=== PATIENT | male | born 1980 | race Caucasian/White ===

== ENCOUNTER 2017-06-29 20:24 | Inpatient (IN) | payer OTHER ==
[~2017-06-29] VITALS: Ht 175.3 cm; Wt 87.1 kg
--- NOTE | 2017-06-29 21:40 | NUR ---
PRE - ADMISSION NOTE : Patient is a 37-year-old male who presents to [facility] for medically supervised withdrawal from benzos and alcohol. He reports a history of heroin and stimulant use disorder, but remains in remission from these substances. Pt. is NKA, Full Code, on Reg. Diet , denies to have PCP, history of withdrawal-induced seizures, but reports a history of withdrawal-induced delirium and accidental intoxication induced overdoses. Patient reported the following symptoms of withdrawal: anxiety, restlessness, tremors, mild headache, difficulty concentrating, muscle spasms, dysphoria, and anhedonia. Pt. also complains of sore throat . TE=233/70 , HR=66, RR=16, unlabored and even, Temp=98.2, No SI/HI at this moment. Pt. denies history of visual and audio hallucinations. Pt. will be admitted to the Unit.
[2017-06-29] MEDS ORDERED: DICYCLOMINE HCL 20 MG TABLET PO PRN (22:45)
[2017-06-29] MEDS ORDERED: ONDANSETRON 4 MG/2 ML VIAL IM PRN (22:45)
[2017-06-29] MEDS ORDERED: MIRALAX 17 GM POWD.PACK PO PRN (22:45)
[2017-06-29] MEDS ORDERED: PRAZOSIN HCL 1 MG CAPSULE PO PRN (22:45)
[2017-06-29] MEDS ORDERED: ACETAMINOPHEN 325 MG TABLET PO PRN (22:45)
[2017-06-29] MEDS ORDERED: THIAMINE HCL 200 MG/2 ML VIAL IM ONE (22:45)
[2017-06-29] MEDS ORDERED: LOPERAMIDE HCL 2 MG CAPSULE PO PRN ×2 (22:45)
[2017-06-29] MEDS ORDERED: MAG HYDROX/AL HYDROX/SIMETH 30 ML LIQUID UDC PO PRN (22:45)
[2017-06-29] MEDS ORDERED: ONDANSETRON ODT 4 MG TAB.RAPDIS SL PRN (22:45)
[2017-06-29] MEDS ORDERED: LORAZEPAM 2 MG/1 ML VIAL IM PRN (22:45)
[2017-06-29] MEDS ORDERED: DIAZEPAM 5 MG TABLET PO PRN (22:45)
[2017-06-29] MEDS ORDERED: DIAZEPAM 10 MG TABLET PO PRN ×2 (22:45)
[2017-06-29] MEDS ORDERED: BACL10TA PO (22:47)
--- NOTE | 2017-06-29 23:00 | NUR ---
ADMISSION NOTE : Patient is a 37-year-old male admitted to [facility] for medically supervised withdrawal from benzos and alcohol. He reports a history of heroin and stimulant use disorder, but remains in remission from these substances. Pt. is NKA, Full Code, on Reg. Diet , denies to have PCP, denies history of withdrawal-induced seizures, but reports a history of withdrawal-induced delirium and accidental intoxication induced overdoses. He states the cause of his ongoing and frequent use have been due to severe anxiety, panic disorder, mood disorder and insomnia . Upon admission the patient reported the following symptoms of withdrawal: anxiety, restlessness, tremors, mild headache, difficulty concentrating, muscle spasms, dysphoria, and anhedonia. Pt. also complains of sore throat . SR=738/70 , HR=66, RR=16, unlabored and even, Temp=98.2, denies pain. Pt. will be started on 5 day Valium taper on 06/30/2017. No SI/HI at this moment. Pt. denies history of visual and audio hallucinations. Pt. is oriented to his room and unit, education provided on Hep.C, substance abuse, falls and seizures. Skin is warm and intact. CIWA=8 . Safety measures in place : bed on lowest position with side rails x2 up for safety, call light within reach. Will continue to monitor closely and offer help. Substance Abuse History is as follow : XANAX 8MG QD PO LAST 3 MONTHS, LAST USE ON 06/29/2017 , USES SINCE 2009. KLONOPIN 8MG QD PO LAST 3 MONTHS, LAST USE ON 06/29/2017 , USES SINCE 2009. ATIVAN 4MG QD PO LAST 3 MONTHS, LAST USE ON 06/29/2017 , USES SINCE 2009. ETOH/VODKA 240 ML QD PO LAST 3 MONTHS, LAST USE ON 06/29/2017 , USES SINCE 1994 CODEINE 90MG QD PO SINCE 05/2017, LAST USE ON 06/29/2017 , USES SINCE 03/2017. OCCASIONALLY NORCO , PERCOCET, DILAUDID. PAST MEDICAL HISTORY : 1. Mood disorder, unspecified 2. Anxiety disorder, unspecified 3. Schizoaffective disorder 4. Panic disorder Surgical history: Other (rectal foreign body surgical removal) [place] HISTORY : X10 DETOX. X10 REHAB. LONGEST SOBER PERIOD : 5 YEARS, 03/2011-08/2015 FAMILY HISTORY : FATHER : HTN, DM. MOTHER AND BROTHER ARE IN GOOD HEALTH CONDITION.
[2017-06-29 23:15] LABS: BASOPHILS # (AUTO) 0.1 K/uL (0.0-8.0); BASOPHILS % (AUTO) 0.6 % (0.0-2.0); EOSINOPHILS # (AUTO) 0.2 K/uL (0.0-0.7); EOSINOPHILS % (AUTO) 1.9 % (0.0-7.0); HEMOGLOBIN 15.7 G/DL (14.0-18.0); LYMPHOCYTES % (AUTO) 32.7 % (20.5-51.5); MEAN CORPUSCULAR HEMOGLOBIN 30.7 UUG (27.0-31.0); MEAN CORPUSCULAR HGB CONC 34 g/dL (32.0-37.0); MONOCYTES # (AUTO) 0.8 K/UL (0.1-1.30); MONOCYTES % (AUTO) 8.2 % (0.0-11.0); NEUTROPHILS # (AUTO) 5.2 K/UL (1.8-8.9); NEUTROPHILS % (AUTO) 56.6 % (38.5-71.5); PLATELET COUNT (AUTO) 229 K/UL (150-450); RED BLOOD CELL COUNT(AUTO) 5.11 MIL/UL (4.7-6.1); WHITE BLOOD COUNT (AUTO) 9.3 K/UL (4.0-11.2)
[2017-06-29] MEDS ORDERED: DIAZEPAM 10 MG TABLET PO SCH (23:30)
[2017-06-29] MEDS ORDERED: THIAMINE HCL 200 MG/2 ML VIAL ONE (23:33)
[2017-06-29] MEDS ORDERED: DIAZEPAM 10 MG TABLET ONE (23:34)
[2017-06-29 23:35] LABS: ETHANOL < 3 MG/DL (0-0)
[2017-06-29 23:46] LABS: ALANINE AMINOTRANSFERASE 40 U/L (16-63); ALKALINE PHOSPHATASE 55 U/L (50-136); ASPARTATE AMINOTRANSFERASE 24 U/L (15-37); BILIRUBIN,TOTAL 0.4 mg/dL (0.2-1.0); CARBON DIOXIDE 32 mmol/L (21-32); CHLORIDE 101 mmol/L (98-107); CREATININE 1.4 mg/dL (0.6-1.3); GLUCOSE 72 mg/dL (74-106); MAGNESIUM 2.1 mg/dL (1.8-2.4); POTASSIUM 3.8 mmol/L (3.5-5.1); TOTAL PROTEIN, SERUM 7.7 g/dL (6.4-8.2); UREA NITROGEN, BLOOD 17 mg/dL (7-18)
[2017-06-30] VITALS: BP 96/50
[2017-06-30] LABS: *AMPHETAMINE, URINE NEGATIVE (NEGATIVE); *BARBITURATE, URINE NEGATIVE (NEGATIVE); *CANNABINOID, URINE NEGATIVE (NEGATIVE); *COCCAINE, URINE NEGATIVE (NEGATIVE); *OPIATE, URINE POSITIVE (NEGATIVE); *PHENCYCLIDINE SCREEN,URINE NEGATIVE (NEGATIVE)
[2017-06-30 00:48] LABS: THYROID STIMULATING HORMONE 3.971 mIU/mL (0.358-3.740)
--- NOTE | 2017-06-30 06:51 | NUR ---
END OF SHIFT NOTE : Patient is a 37-year-old male who presents to [facility] for medically supervised withdrawal from benzos and alcohol. He reports a history of heroin and stimulant use disorder, but remains in remission from these substances. Pt. is NKA, Full Code, on Reg. Diet , denies to have PCP, history of withdrawal-induced seizures, but reports a history of withdrawal-induced delirium and accidental intoxication induced overdoses. Pt remains compliant with the treatment plan.No PRN were given during my shift. V/S remain WNL. RR=16, even and unlabored, lungs clear upon auscultation, abdomen soft and non- distended. Pt denies nausea, vomiting and diarrhea. CIWA taken when pt. was alert during the night, LAST CIWA= 5 at 0400 , INTAKE= 500 ml, voided x 1, slept 6 hours. Safety measures in place : bed on lowest position with side rails x2 up for safety, call light within reach. Will continue to monitor closely and offer help.
--- NOTE | 2017-06-30 07:40 | NUR ---
START OF SHIFT: PT IS LAYING IN BED SLEEPING WITH RESPIRATIONS EVEN AND UNLABORED.HE IS EASILY AROUSABLE AND STATES HE NEEDS TO SLEEP. WILL CONTINUE TO MONITOR.
[2017-06-30 08:01] VITALS: BP 100/60
[2017-06-30] MEDS: THIAMINE HCL 100 MG TABLET PO SCH (09:00)
[2017-06-30] MEDS: MULTIVITAMINS,THERAPEUTIC TABLET PO SCH (09:00)
[2017-06-30] MEDS: FOLIC ACID 1 MG TABLET PO SCH (09:00)
[2017-06-30] MEDS ORDERED: DIAZEPAM 10 MG TABLET PO SCH (09:00)
[2017-06-30] MEDS ORDERED: TUBERCULIN,PURIF.PROT.DERIV. 5 TU/0.1 ML TEST ID ONE ×2 (09:00→13:00)
[2017-06-30] MEDS: OXCARBAZEPINE 150 MG TABLET PO SCH ×2 (09:00→21:50)
--- NOTE | 2017-06-30 10:00 | NUR ---
HELD AM MEDS.YAKOV DEFERRED. WILL CONTINUE TO MONITOR AND OFFER SUPPORT.
[2017-06-30] MEDS ORDERED: OXCARBAZEPINE 150 MG TABLET PO ONE (11:30)
[2017-06-30] MEDS: DIAZEPAM 10 MG TABLET PO SCH ×4 (11:31→21:50)
--- NOTE | 2017-06-30 11:55 | NUR ---
PT IS A/O X 4. HE PRESENTS WITH ANXIOUS MOOD AND CONGRUENT AFFECT. HE C/O RESTLESSNESS,ANXIETY AND IRRITABILITY. CIWA 10. VALIUM TAPER IN PROGRESS. HE STATES HE DOES NOT REMEMBER SORTING OUT HIS CLOTHES ON ADMISSION AND IS QUESTIONING WHERE THEY ARE. RV SERVICER TO ANSWER PT'S QUESTIONS REGARDING BELONGINGS. PT IS C/O LARYNGITIS AND COUGH. MD MADE AWARE AND HE STATES HE WILL ORDER MEDS TO MANAGE. WILL CONTINUE TO MONITOR AND OFFER SUPPORT.
[2017-06-30 12:00] VITALS: BP 117/60
[2017-06-30] MEDS ORDERED: GUAIFENESIN SUGAR FREE 100 MG/5 ML UDC PO PRN (12:30)
[2017-06-30] MEDS ORDERED: DIME25TA2 PO (15:26)
[2017-06-30] MEDS ORDERED: MELA5TAB PO (15:26)
[2017-06-30] MEDS ORDERED: POLY119P2 PO ×2 (15:29→15:33)
[2017-06-30] MEDS ORDERED: zicam (15:29)
[2017-06-30] MEDS ORDERED: VILA10TA PO (15:40)
[2017-06-30] MEDS ORDERED: IBUP200C92 PO (15:40)
[2017-06-30] MEDS ORDERED: DIPH25TA62 PO (15:41)
[2017-06-30 16:00] VITALS: BP 107/64
--- NOTE | 2017-06-30 18:31 | NUR ---
END OF SHIFT: PT STARTED ON VALIUM TAPER TODAY. HE SLEPT MOST OF AM AND STARTED IN AFTERNOON. HE PRESENTS WITH BIZARRE AFFECT. HE C/O FEELING IMPENDING DOOM. OFFERED SUPPORT. ENCOURAGED INCREASED FLUIDS TO ASSIST IN FACILITATING DETOX PROCESS. WILL PASS SHIFT REPORT TO ONCOMING NIGHT NURSE.
--- NOTE | 2017-06-30 19:15 | NUR ---
START OF SHIFT NOTE : Patient is a 37-year-old male admitted to [facility] for medically supervised withdrawal from benzos and alcohol. Pt. is NKA, Full Code, on Reg. Diet. Pt. started on 5 day Valium taper on 06/30/2017. Pt. complains of sore throat , increased level of anxiety, anhedonia, denies pain. No SI/HI at this moment ,CIWA=4 . Safety measures in place : bed on lowest position with side rails x2 up for safety, call light within reach. Will continue to monitor closely and offer help
[2017-06-30 20:00] VITALS: BP 92/50
--- NOTE | 2017-06-30 21:00 | NUR ---
PRN CEPACOL, BENADRYL, CATAPRESS, LIORESAL Pt. complains of sleeplessness, flashes, soar throat, mild muscle spasm. PRN CEPACOL, BENADRYL, CATAPRESS, LIORESAL Given as ordered . Safety measures in place : bed on lowest position with side rails x2 up for safety, call light within reach. Will continue to monitor closely and offer help.
[2017-06-30] MEDS: BENZOCAINE/MENTH/CETYLPYRD LOZENGE MM PRN (21:50)
[2017-06-30] MEDS: BACLOFEN 20 MG TABLET PO PRN (21:50)
[2017-06-30] MEDS: diphenhydrAMINE 50 MG CAPSULE PO PRN (21:50)
[2017-06-30] MEDS: CLONIDINE HCL 0.1 MG TABLET PO PRN (21:51)
--- NOTE | 2017-06-30 22:00 | NUR ---
RE-ASSESSMENT CEPACOL, BENADRYL, CATAPRESS, LIORESAL Pt. is sleeping , RR=16, unlabored and even. Safety measures in place : bed on lowest position with side rails x2 up for safety, call light within reach. Will continue to monitor closely and offer help.
--- NOTE | 2017-07-01 06:54 | NUR ---
END OF SHIFT NOTE : Patient is a 37-year-old male admitted to [facility] for medically supervised withdrawal from benzos and alcohol. Pt. is NKA, Full Code, on Reg. Diet. Pt. started on 5 day Valium taper on 06/30/2017. Pt remains compliant with the treatment plan. PRN CEPACOL, BENADRYL, CATAPRESS, LIORESAL given during my shift. V/S remain WNL. RR=16, even and unlabored, lungs clear upon auscultation, abdomen soft and non- distended. Pt denies nausea, vomiting and diarrhea. CIWA taken when pt. was alert during the night, LAST CIWA=4 at 0400 , NPAKKR=071 ml, voided x 1, slept 6 hours. Safety measures in place : bed on lowest position with side rails x2 up for safety, call light within reach. Will continue to monitor closely and offer help. Addendum: 07/01/17 at 0754 by YORDAN GUAJARDO RN Pt. placed side-rales down (his wish).
--- NOTE | 2017-07-01 07:45 | NUR ---
START OF SHIFT Rcvd endorsement from ongoing nurse, client is in bed, he is a/o x 4, he presents with anxious mood and flat affect and clammy skin. Client reports sore throat and said I have not been able to speak for like a week due to pain, no redness , no swollen lymph nodes, no difficulty swallowing. He reports chills, body aches, abdominal cramps, decreased appetite, and fine tremors. Encouraged client to attend group therapy for skills to maintain sober. Encouraged client to increase PO fluid as tolerated to facilitate detox. Client is a 37 y/o male, admitted to [facility] for withdrawal from sedative-hypnotics and alcohol. Client is on 5 day Valium taper (day 2), tolerating well . Last CIWA 4 @ 0400. PRN Cepacol lozenge MM for sore throat, Benadryl 50mg for inability to sleep, Clonidine 0.1mg Po for irritability, anxiety, Baclofen 20mg for muscle spasm, noted effective. Client slept 7 hrs. He denies any hx of withdrawal-induced seizures, but he reports a hx of withdrawal induced delirium. Client is on He reports of NKA, he is full code, Regular diet. Client refused side rails x 2 up/padded, explained that they are for seizure precautions, but he still refused, stating I do not need it, never had a seizure before. Call light within reach.
[2017-07-01 08:00] VITALS: BP 111/61
[2017-07-01 08:06] LABS: HEPATITIS B SURFACE AG Negative (Negative)
[2017-07-01] MEDS: MULTIVITAMINS,THERAPEUTIC TABLET PO SCH (09:59)
[2017-07-01] MEDS: FOLIC ACID 1 MG TABLET PO SCH (09:59)
[2017-07-01] MEDS: DIAZEPAM 10 MG TABLET PO SCH ×3 (09:59→21:14)
[2017-07-01] MEDS: THIAMINE HCL 100 MG TABLET PO SCH (09:59)
[2017-07-01] MEDS: OXCARBAZEPINE 150 MG TABLET PO SCH (10:30)
[2017-07-01 12:52] VITALS: BP 102/52
[2017-07-01] MEDS ORDERED: OXCARBAZEPINE 150 MG TABLET PO ONE (13:00)
[2017-07-01] MEDS ORDERED: AZITHROMYCIN 250 MG TABLET PO ONE (13:00)
[2017-07-01 16:55] VITALS: BP 104/56
[2017-07-01] MEDS: BACLOFEN 20 MG TABLET PO PRN ×2 (17:43→21:14)
--- NOTE | 2017-07-01 17:43 | NUR ---
PRN Bentyl 20mg Po, Baclofen 20mg PO administered for abdominals spasms and muscle spasm on lower extremities respectively. call light within reach. Will continue to monitor.
--- NOTE | 2017-07-01 18:43 | NUR ---
Reassessment PRN Bentyl 20mg PO, Baclofen 20mg PO, client reports feeling better. call light within reach. Will continue to monitor.
--- NOTE | 2017-07-01 19:15 | NUR ---
[address] [place] [address] START OF SHIFT NOTE : Patient is a 37-year-old male admitted to [facility] for medically supervised withdrawal from benzos and alcohol. Pt. is NKA, Full Code, on Reg. Diet. Pt. started on 5 day Valium taper on 06/30/2017. Pt. complains of sore throat , increased level of anxiety. No SI/HI at this moment ,CIWA=7 . Safety measures in place : bed on lowest position with side rails x2 up for safety, call light within reach. Will continue to monitor closely and offer help.
--- NOTE | 2017-07-01 19:28 | NUR ---
END OF SHIFT Client is a 37 y/o male,a/o x 4, he was admitted to [facility] for withdrawal from sedative-hypnotics and alcohol. Client is on 5 day Valium taper (day 2), tolerating well . Last CIWA 8 @ 1600. Client continue to presents with depressed mood, withdrawal, flat affect, chills, fine tremors, restless legs noted. Client is on antibiotic therapy, Azithromycin 500 mg PO x1 now, followed by 250 mg PO daily x 4 days, tolerating well. PRN Bentyl 20mg Po, Baclofen 20mg PO administered for abdominals spasms and muscle spasm on lower extremities respectively, noted effective. Client was not compliant with group therapy due to withdrawal symptoms. Adequate PO fluid intake 1592mL, void x 4, stool x 1. He denies any hx of withdrawal-induced seizures, but he reports a hx of withdrawal induced delirium. Client is on He reports of NKA, he is full code, Regular diet. Client refused side rails x 2 up/padded, explained that they are for seizure precautions, but he still refused, stating I do not need it, never had a seizure before. Call light within reach. Endorsed to incoming nurse.
[2017-07-01 20:00] VITALS: BP 109/55
[2017-07-01] MEDS: CLONIDINE HCL 0.1 MG TABLET PO PRN (21:14)
[2017-07-01] MEDS: diphenhydrAMINE 50 MG CAPSULE PO PRN (21:14)
[2017-07-01] MEDS: OXCARBAZEPINE 300 MG TABLET PO SCH (21:14)
[2017-07-01] MEDS: BENZOCAINE/MENTH/CETYLPYRD LOZENGE MM PRN (21:14)
--- NOTE | 2017-07-02 06:35 | NUR ---
END OF SHIFT NOTE : Patient is a 37-year-old male admitted to [facility] for medically supervised withdrawal from benzos and alcohol. Pt. is NKA, Full Code, on Reg. Diet. Pt. started on 5 day Valium taper on 06/30/2017 Pt remains compliant with the treatment plan. PRN CEPACOL, BENADRYL, CATAPRESS, LIORESAL were given during my shift. V/S remain WNL. RR=16, even and unlabored, lungs clear upon auscultation, abdomen soft and non- distended. Pt denies nausea, vomiting and diarrhea. CIWA taken when pt. was alert during the night, LAST CIWA= 5 at 0400 , INTAKE= 1203 ml, voided x3 , slept 9 hours. Safety measures in place : bed on lowest position with side rails x2 up for safety, call light within reach. Will continue to monitor closely and offer help.
--- NOTE | 2017-07-02 07:30 | NUR ---
START OF SHIFT NOTE: RECEIVED PT FROM DEPUTY PROBATION OFFICER NURSE, PT IS IN STABLE CONDITION AT THIS TIME. PT IS ADMITTED TO [facility] FOR BENZO/ETOH WITHDRAWAL/DEPENDENCE. PT'S LAST CIWA 5 AND SLEPT FOR 9 HOURS. WILL CONTINUE TO MONITOR PT FOR ANY CHANGES AND MONITOR PT FOR ANY A/R TO TAPER MEDICATIONS
[2017-07-02] MEDS: THIAMINE HCL 100 MG TABLET PO SCH (08:54)
[2017-07-02] MEDS: OXCARBAZEPINE 300 MG TABLET PO SCH ×2 (08:54→21:19)
[2017-07-02] MEDS: AZITHROMYCIN 250 MG TABLET PO SCH (08:54)
[2017-07-02] MEDS: MULTIVITAMINS,THERAPEUTIC TABLET PO SCH (08:54)
[2017-07-02] MEDS: DIAZEPAM 5 MG TABLET PO SCH ×4 (08:54→21:19)
[2017-07-02] MEDS: FOLIC ACID 1 MG TABLET PO SCH (08:54)
[2017-07-02 10:28] VITALS: BP 104/55
--- NOTE | 2017-07-02 12:10 | NUR ---
relayed lab results regarding moderate growth in throat culture. stated he is already on ATB therapy.
[2017-07-02 13:11] VITALS: BP 120/60
--- NOTE | 2017-07-02 14:36 | NUR ---
Therapist prompted client about group times. Client stated he does not want to go to groups because he doesn't like them. Therapist discussed benefits of group therapy with client. Client stated he will try to attend tomorrow.
[2017-07-02 18:39] VITALS: BP 112/71
--- NOTE | 2017-07-02 19:09 | NUR ---
END OF SHIFT NOTE: PT IS IN STABLE CONDITION NO S/S OF PAIN OR DISCOMFORT. PTS LAST CIWA 5, PT IS CONSTANTLY VERBALIZING ANXIETY. BUT IS IN A CALM, FLAT AFFECT. PT IS ADMITTED TO [facility] FOR BENZO/ETOH WITHDRAWAL/DEPENDENCE. PT TOLERATED TAPER MEDICATIONS WELL NO A/R NOTED. WILL ENDORSE PT TO COMBER TENDER
--- NOTE | 2017-07-02 19:15 | NUR ---
START OF SHIFT NOTE : Patient is a 37-year-old male admitted to [facility] for medically supervised withdrawal from benzos and alcohol. Pt. is NKA, Full Code, on Reg. Diet. Pt. started on 5 day Valium taper on 06/30/2017, tolerates well. Pt remains compliant with the treatment plan, complains of increased level of anxiety , want sleeping pill after 21:00. Last CIWA=5 at 19:15. Safety measures in place : bed on lowest position with side rails x2 up for safety, call light within reach. Will continue to monitor closely and offer help.
[2017-07-02 20:00] VITALS: BP 105/68
[2017-07-02] MEDS: BENZOCAINE/MENTH/CETYLPYRD LOZENGE MM PRN (21:19)
[2017-07-02] MEDS: BACLOFEN 20 MG TABLET PO PRN (21:19)
[2017-07-02] MEDS: diphenhydrAMINE 50 MG CAPSULE PO PRN (21:19)
[2017-07-02] MEDS: CLONIDINE HCL 0.1 MG TABLET PO PRN (21:19)
--- NOTE | 2017-07-03 06:41 | NUR ---
END OF SHIFT NOTE : Patient is a 37-year-old male admitted to [facility] for medically supervised withdrawal from benzos and alcohol. Pt. is NKA, Full Code, on Reg. Diet. Pt. started on 5 day Valium taper on 06/30/2017, tolerates well. Pt remains compliant with the treatment plan. PRN CEPACOL, BENADRYL, CATAPRESS, LIORESAL were given during my shift. RR=16, even and unlabored, lungs clear upon auscultation, abdomen soft and non- distended. Pt denies nausea, vomiting and diarrhea. CIWA taken when pt. was alert during the night, LAST CIWA=5 at 0400 , BUGYUC=0837 ml, voided x3 , slept 8 hours. Safety measures in place : bed on lowest position with side rails x2 up for safety, call light within reach. Will continue to monitor closely and offer help.
--- NOTE | 2017-07-03 07:35 | NUR ---
Start of shift note; Received report from night nurse. Patient is a 37 year old male admitted on 06/29/17 for ETOH/Benzo dependence. Patient was placed on Valium taper, no adverse reactions noted. Patient reported history of anxiety, depression, mood disorder, panic disorder , schizoaffective disorder. Patient's last CIWA is 5. Patient received PRNs Cepacol, Benadryl , clonidine, baclofen all noted to be effective. Patient is on fall and seizure precaution. All safety measures secured. Will continue to monitor patient.
[2017-07-03 08:00] VITALS: BP 103/63
[2017-07-03] MEDS: FOLIC ACID 1 MG TABLET PO SCH (08:48)
[2017-07-03] MEDS: MULTIVITAMINS,THERAPEUTIC TABLET PO SCH (08:48)
[2017-07-03] MEDS: DIAZEPAM 5 MG TABLET PO SCH ×3 (08:48→21:09)
[2017-07-03] MEDS: OXCARBAZEPINE 300 MG TABLET PO SCH ×2 (08:48→21:09)
[2017-07-03] MEDS: AZITHROMYCIN 250 MG TABLET PO SCH (08:48)
[2017-07-03] MEDS: THIAMINE HCL 100 MG TABLET PO SCH (08:48)
--- NOTE | 2017-07-03 11:18 | NUR ---
Psychiatrist new Order; gave telephone order of Seroquel 100mg PO HS. does not have access to [employer] at this time. Order entered on [employer], medication scheduled for 2099.
[2017-07-03 12:00] VITALS: BP 131/86
[2017-07-03 16:00] VITALS: BP 107/62
--- NOTE | 2017-07-03 18:16 | NUR ---
End of shift note; Patient is AOX4. Patient is a 37 year old male admitted on 06/29/17 for ETOH/Benzo dependence. Patient was placed on Valium taper, no adverse reactions noted. Patient reported history of anxiety, depression, mood disorder, panic disorder , schizoaffective disorder. Patient's last CIWA is 2 at 1600. Patient remained compliant with treatment plan and medication regime. Medications were effective in reducing withdrawal symptoms. All safety measures secured. Met all needs.
[2017-07-03 20:00] VITALS: BP 112/62
--- NOTE | 2017-07-03 20:00 | NUR ---
START OF SHIFT NOTE RECEIVED REPORT FROM DAY SHIFT NURSE. PATIENT IS A 37 YEAR OLD MALE ADMITTED FOR ETOH/BENZO/CODEINE DEPENDENCE. CONTINUE ON VALIUM TAPER. PATIENT REPORTS PMH OF ANXIETY, DEPRESSION, MOOD D/O, PANIC D/O, SCHOAFFECTIVE D/O AND RECTAL SURGERY. PATIENT ALSO REPORTS HISTORY OF WITHDRAWAL INDUCED DELIRIUM.SKIN INTACT. PATIENT DID NOT REQUIRE ANY PRN MEDICATION. LAST CIWA 2. RECEIVED PATIENT IN HIS ROOM , RESTING. PATIENT ALERT AND ORIENTED X 4. RESPIRATION EVEN AND UNLABORED. PATIENT REPORTS ANXIETY. NO N/V. DENIES ANY PAIN AT THIS TIME. PATIENT ENCOURAGED TO ATTEND GROUPS. ON FALL/SEIZURE PRECAUTION. SAFETY MEASURES IN PLACE. CALL LIGHT IN REACH. WILL CONTINUE TO MONITOR.
[2017-07-03] MEDS: PRAZOSIN HCL 1 MG CAPSULE PO SCH (21:00)
[2017-07-03] MEDS ORDERED: QUETIAPINE FUMARATE 100 MG TABLET PO SCH (21:00)
--- NOTE | 2017-07-03 21:00 | NUR ---
MINIPRESS HELD MINIPRESS WAS HELD DUE TO PATIENT'S BLOOD PRESSURE 112/62 AND HR 58. MINIPRESS WITH PARAMETER TO HOLD IF BP-100/70 AND HR 70. WILL CONTINUE TO MONITOR
--- NOTE | 2017-07-03 21:05 | NUR ---
ORDERS PATIENT REFUSED SEROQUEL, PER PATIENT SEROQUEL MAKES HIM MORE ANXIOUS. RADHA PLUMMER WAS NOTIFIED AND MADE NEW ORDER OF BENADRYL FOR SLEEP. WILL CONTINUE TO MONITOR
--- NOTE | 2017-07-03 21:09 | NUR ---
PRN BENADRYL ADMINISTRATION PATIENT REQUESTS FOR SLEEP AID. PRN BENADRYL GIVEN. WILL MONITOR FOR EFFECTIVENESS
[2017-07-03] MEDS ORDERED: diphenhydrAMINE 50 MG CAPSULE PO PRN (21:15)
[2017-07-03] MEDS ORDERED: diphenhydrAMINE 50 MG CAPSULE ONE (21:22)
--- NOTE | 2017-07-03 23:00 | NUR ---
KIMBERLEE YOUNG RE-ASSESSMENT PATIENT ASLEEP AT THIS TIME. RESPIRATION EVEN AND UNLABORED. SAFETY MEASURES IN PLACE. CALL LIGHT IN REACH. WILL CONTINUE TO MONITOR.
--- NOTE | 2017-07-04 | NUR ---
CIWA DEFERRED PATIENT SLEEPING. REFUSED TO WOKEN UP FOR VS. RESPIRATION EVEN AND UNLABORED. SAFETY MEASURES IN PLACE. CALL LIGHT IN REACH. WILL CONTINUE TO MONITOR
--- NOTE | 2017-07-04 04:00 | NUR ---
CIWA DEFERRED PATIENT SLEEPING. REFUSED TO WOKEN UP FOR VS. RESPIRATION EVEN AND UNLABORED. SAFETY MEASURES IN PLACE. CALL LIGHT IN REACH. WILL CONTINUE TO MONITOR
--- NOTE | 2017-07-04 07:18 | NUR ---
END OF SHIFT PATIENT IN ROOM MOST OF THE SHIFT. COMPLIANT WITH MEDICATIONS. PATIENT SLEPT 6 HOURS. FLUID INTAKE 2,210 ML. VOIDED X 3 AND BM X 2. MINIPRESS HELD FOR PARAMETER IF BP LESS THAN 100/70 AND HR 70. PATIENT'S BP AT 1999 WAS 112/62 HR 58. SEROQUEL REFUSED, EXPLAINED RISKS BENEFITS. DR. GARCIA AWARE AND MADE NEW ORDER FOR BENADRYL FOR SLEEP. LAST CIWA 4. WILL CONTINUE TO MONITOR.
[2017-07-04 08:00] VITALS: BP 90/60
--- NOTE | 2017-07-04 08:00 | NUR ---
START OF SHIFT: RECEIVED PT A/O X 4. HE PRESENTS WITH GUARDED AFFECT AND ANXIOUS MOOD. HE STATES HE SLEPT OK. PT STATES HE DOES NOT FEEL VERY GOOD BOT WONT GO INTO DETAILS ABOUT S/S OF W/D. CIWA 4 VALIUM TAPER IN PROGRESS TO MANAGE SYMPTOMS. ENCOURAGED GROUP ATTENDANCE. WILL CONTINUE TO MONITOR AND OFFER SUPPORT.
[2017-07-04] MEDS: MULTIVITAMINS,THERAPEUTIC TABLET PO SCH (08:45)
[2017-07-04] MEDS: AZITHROMYCIN 250 MG TABLET PO SCH (08:45)
[2017-07-04] MEDS: DIAZEPAM 5 MG TABLET PO SCH ×2 (08:45→20:05)
[2017-07-04] MEDS: OXCARBAZEPINE 300 MG TABLET PO SCH ×2 (08:45→20:05)
[2017-07-04] MEDS: FOLIC ACID 1 MG TABLET PO SCH (08:46)
[2017-07-04] MEDS: THIAMINE HCL 100 MG TABLET PO SCH (08:46)
[2017-07-04 12:00] VITALS: BP 129/62
[2017-07-04] MEDS ORDERED: DIAZEPAM 5 MG TABLET PO ONE (15:00)
[2017-07-04 16:00] VITALS: BP 99/60
--- NOTE | 2017-07-04 18:40 | NUR ---
END OF SHIFT; PT CONTINUES ON VALIUM TAPER.. LAST CIWA 2. HE CONTINUES TO PRESENT WITH BLUNTED AFFECT AND ISOLATES IN HIS ROOM. HE DID NOT ATTEND GROUPS TODAY. DR ORDERED EXTRA DOSE OF VALIUM PT C/O SEVERE ANXIETY AND S/S OF W/D. ENCOURAGED HIM TO TALK WITH THERAPIST TO EXPRESS FEELINGS. WILL PASS SHIFT REPORT TO ONCOMING NIGHT NURSE.
[2017-07-04 20:00] VITALS: BP 112/71
--- NOTE | 2017-07-04 20:00 | NUR ---
Start of Shift Note: Report received from day shift nurse. Pt is a 37M admitted on 06/29/17 for medically-supervised withdrawal from benzodiazepines and ETOH. Pt reports using Xanax 8mg, Klonopin 8mg, Ativan 4mg, and drinking 240mL vodka daily for three months. Pt is on Valium taper ending tonight. Pt received with last CIWA=2, and one-time dose of Valium given during day shift. Pt is a full code. Pt is on a regular diet. Pt reports NKDA/NKFA. PMHx: anxiety, depression, mood disorder, panic disorder, schizoaffective disorder. Pt received in room, is A&Ox4, and reports anxiety; pt noted to be guarded with restricted affect. Bed is in low position and locked, side rails up x2, call light is within reach. Will continue to monitor.
[2017-07-04] MEDS: diphenhydrAMINE 50 MG CAPSULE PO PRN (20:05)
--- NOTE | 2017-07-04 20:05 | NUR ---
PRN Benadryl: Patient complains of inability to sleep. Administered PRN Benadryl as ordered. Will reassess at end of shift.
[2017-07-04] MEDS: PRAZOSIN HCL 1 MG CAPSULE PO SCH (20:06)
[2017-07-04] MEDS ORDERED: QUETIAPINE FUMARATE 100 MG TABLET PO PRN (21:00)
--- NOTE | 2017-07-04 21:00 | NUR ---
Prazosin Non-Admin: Patient refuses 21:00 scheduled Prazosin, stating "I don't like to take new medications. It doesn't work out well for me." Patient educated on risks and benefits but still refused. Will continue to monitor.
[2017-07-05] VITALS: BP 101/54
--- NOTE | 2017-07-05 | NUR ---
CIWA Deferred: Ordered 00:00 CIWA assessment is deferred for sleep. VSS. All safety precautions are in place. Will continue to monitor. Addendum: 07/05/17 at 0130 by REJI CASTILLO RN Amended: Links added.
[2017-07-05 04:00] VITALS: BP 94/50
--- NOTE | 2017-07-05 04:00 | NUR ---
CIWA Deferred: CIWA is deferred for sleep. VSS. All safety precautions are in place. Will continue to monitor. Addendum: 07/05/17 at 0426 by REJI CASTILLO RN Amended: Links added.
[2017-07-05] MEDS: IBUPROFEN 600 MG TABLET PO PRN ×3 (05:20→20:24)
--- NOTE | 2017-07-05 05:20 | NUR ---
PRN Motrin: Patient complains of headache. Reports pain 7/10. Administered PRN Motrin as ordered. Will continue to monitor.
--- NOTE | 2017-07-05 06:20 | NUR ---
PRN Motrin Reassessment: Patient denies pain at this time. PRN Motrin effective. Will continue to monitor.
--- NOTE | 2017-07-05 07:08 | NUR ---
End of Shift Note: Pt is a 37 y/o male admitted to [facility] on 06/29/17 for medically-supervised withdrawal from benzodiazepines and ETOH. Pt reported a PMHx of anxiety, depression, mood disorder, panic disorder, and schizoaffective disorder. Pt is a full code, is on a regular diet, and reports NKDA/NKFA. Pt reported using Xanax 8mg, Klonopin 8mg, Ativan 4mg, and drinking 240mL vodka daily for three months. Pt is on Valium taper ending this morning. Scheduled medication regime effectively managed s/s of withdrawal, in addition to PRN Motrin. Pt refused scheduled Prozosin this shift. Last CIWA=4 at 20:00. V/S stable throughout shift. Total fluid intake this shift: 855 ml; output: urine x 2 and BM x 0. PRN Benadryl was given for insomnia, which was effective and slept 7 hours this shift. Pt is currently in bed, all needs have been attended and met. Pt endorsed to day shift nurse.
--- NOTE | 2017-07-05 07:30 | NUR ---
START OF SHIFT Pt 37 y/o male admitted for benzo/ etoh/ codeine dependence. Pt received in room on bed with eyes closed resting, but easily arousable to name. Pt alert and oriented to name, place, and time. Perrla. Skin warm and dry to touch. Respiration even and unlabored. It was reported that pt slept for 7 hours last night. Bed on lowest position with side rails x2 up for safety. Call light within reach. No distress noted at this time.
[2017-07-05 08:00] VITALS: BP_SYST 53
[2017-07-05] MEDS: FOLIC ACID 1 MG TABLET PO SCH (08:39)
[2017-07-05] MEDS: THIAMINE HCL 100 MG TABLET PO SCH (08:39)
[2017-07-05] MEDS: OXCARBAZEPINE 300 MG TABLET PO SCH ×2 (08:39→20:24)
[2017-07-05] MEDS: AZITHROMYCIN 250 MG TABLET PO SCH (08:39)
[2017-07-05] MEDS: MULTIVITAMINS,THERAPEUTIC TABLET PO SCH (08:40)
[2017-07-05] MEDS ORDERED: DIAZEPAM 5 MG TABLET PO SCH (09:00)
[2017-07-05] MEDS: HYDROXYZINE PAMOATE 25 MG CAPSULE PO PRN ×2 (11:54→20:24)
--- NOTE | 2017-07-05 11:57 | NUR ---
PRN Pt observed pacing hallways. Pt appears anxious. Vistaril po prn per MD order given and tolerated well.
[2017-07-05 12:00] VITALS: BP 116/76
--- NOTE | 2017-07-05 12:57 | NUR ---
KIMBERLEE DUENAS Pt observed sitting calmly on bed in room. No distress noted this time.
[2017-07-05] MEDS: BACLOFEN 20 MG TABLET PO PRN ×2 (13:11→20:24)
--- NOTE | 2017-07-05 13:14 | NUR ---
PRN Pt with generalized body aches 02/17. Baclofen po prn per MD order given and tolerated well.
--- NOTE | 2017-07-05 13:15 | NUR ---
PRN Pt states has sore pain on left forearm. Motrin po prn per MD order given and tolerated well.
--- NOTE | 2017-07-05 14:14 | NUR ---
KIMBERLEE DUENAS Pt states pain 2/10 and observed walking around the hallways.
--- NOTE | 2017-07-05 14:15 | NUR ---
PRN YULISSA Pt states pain 10/20.
[2017-07-05] MEDS ORDERED: BACL20TA PO (15:10)
[2017-07-05] MEDS ORDERED: HYDR-3895 PO (15:10)
[2017-07-05] MEDS ORDERED: OXCA300T4 PO (15:10)
[2017-07-05] MEDS ORDERED: AZIT250T6 PO (15:10)
[2017-07-05] MEDS ORDERED: IBUP-1955 PO (15:10)
[2017-07-05] MEDS ORDERED: DIPH50CA37 PO (15:10)
[2017-07-05 16:00] VITALS: BP 113/63
--- NOTE | 2017-07-05 16:25 | NUR ---
Therapist prompted client about group times. Client stated he hasn't been attending because he hasn't been feeling well. Client stated he will not be attending tomorrow because he is discharging tomorrow.
--- NOTE | 2017-07-05 17:57 | NUR ---
END OF SHIFT Pt 37 y/o male admitted for benzo/ etoh/ codeine dependence. Pt alert and oriented to name, place, and time. Perrla. Skin warm and dry to touch. Respirations even and unlabored. Pt with some anxiety noted this morning. Pt was concerned about discharge location. Pt observed mostly isolative to room and hallway throughout the day. Pt was seen by MD today. Pt medication compliant and tolerated well. No ASE noted. Pt is scheduled to be discharged tomorrow. Bed on lowest position with side rails x2 up for safety. Call light within reach. No distress noted at this time.
--- NOTE | 2017-07-05 19:05 | NUR ---
Start of Shift Patient Received. Patient is in his room, awake, alert and verbally responsive. Breathing even and non labored. Patient is a 37 year old male that was admitted on 06/29/17 for ETOH and Benzo Dependence under the care of Dr. Jeff. Patient has completed a 5 day Valium taper. No known allergies, wishes to be full code, following a regular diet, placed on fall precautions, skin noted intact. Past Medical history noted as: Anxiety, Depression, Mood Disorder, Panic Disorder, Schizo Affective Disorder, History of Rectal Surgery, History of withdrawal induced delirium. Per endorsement, patient is set for discharge tomorrow 07/06/17 with discharge location still pending. Patient was given PRN Vistaril, Motrin, and Baclofen with Medications noted to be effective. All needs attended to promptly. Will continue plan of care as ordered.
[2017-07-05 20:16] VITALS: BP 111/77
[2017-07-05] MEDS: diphenhydrAMINE 50 MG CAPSULE PO PRN (20:24)
--- NOTE | 2017-07-05 20:25 | NUR ---
PRN Medication Administration Patient verbalizing increased anxiety, muscle spasms, and inability of falling asleep. Patient is also verbalizing pain of 5/10 to left forearm due to previous blood draw site. PRN Motrin, Baclofen, Vistaril, and Benadryl administered. Will continue to monitor.
[2017-07-05] MEDS: PRAZOSIN HCL 1 MG CAPSULE PO SCH (20:28)
--- NOTE | 2017-07-05 21:30 | NUR ---
PRN Medication Reassessment Patient noted in bed sleeping. Breathing even and non labored. No signs of pain or discomfort noted. Patient was given PRN Motrin, Baclofen, Vistaril, and Benadryl with medications noted to be effective as evidence of patient resting with no signs of discomfort noted. Will continue to monitor.
[2017-07-06 00:07] VITALS: BP 97/51
[2017-07-06 04:10] VITALS: BP 94/52
--- NOTE | 2017-07-06 07:21 | NUR ---
End of Shift Patient is in bed sleeping but easily aroused to verbal stimuli. Breathing even and non labored. Patient is a 37 year old male that was admitted on 06/29/17 for ETOH and Benzo Dependence under the care of Dr. Jeff. Patient has completed a 5 day Valium taper. No known allergies, Full Code, Regular Diet, placed on fall precautions, skin noted intact. Past Medical history noted as: Anxiety, Depression, Mood Disorder, Panic Disorder, Schizo Affective Disorder, History of Rectal Surgery, History of withdrawal induced delirium. Patient is set for discharge today 07/06/17 with discharge location still pending. Patient was given PRN Vistaril, Motrin, Benadryl and Baclofen with Medications noted to be effective. Last noted CIWA 4.All needs attended to promptly. Will endorse to continue plan of care as ordered.
--- NOTE | 2017-07-06 07:25 | NUR ---
Start Of Shift Report received. Patient is a 37 year old male that was admitted on 06/29/17 for ETOH and Benzo Dependence under the care of Dr. Jeff. Patient has completed a 5 day Valium taper tolerated well. Full Code, Regular Diet, No known allergies, continues on fall precautions, skin noted intact. Past Medical history noted as: Anxiety, Depression, Mood Disorder, Panic Disorder, Schizo Affective Disorder, History of Rectal Surgery, History of withdrawal induced delirium. Patient is set for discharge today with discharge location still pending. Pt's last CIWA score was 4 taken at 0400. Patient was given PRN Vistaril, Motrin, Benadryl and Baclofen with Medications noted to be effective. Pt slept for a total of 7 hours last night, encouraged pt to drink more fluids to help facilitate the detox process. All safety measures in place, call light within reach will continue to monitor and provide support.
[2017-07-06 08:00] VITALS: BP 106/61
[2017-07-06] MEDS: FOLIC ACID 1 MG TABLET PO SCH (09:03)
[2017-07-06] MEDS: MULTIVITAMINS,THERAPEUTIC TABLET PO SCH (09:03)
[2017-07-06] MEDS: OXCARBAZEPINE 300 MG TABLET PO SCH (09:03)
[2017-07-06] MEDS: THIAMINE HCL 100 MG TABLET PO SCH (09:04)
[2017-07-06] MEDS: BACLOFEN 20 MG TABLET PO PRN (09:09)
[2017-07-06] MEDS: HYDROXYZINE PAMOATE 25 MG CAPSULE PO PRN (09:09)
[2017-07-06] MEDS: IBUPROFEN 600 MG TABLET PO PRN (09:28)
[2017-07-06 12:00] VITALS: BP 110/78
--- NOTE | 2017-07-06 16:05 | NUR ---
DISCHARGE NOTE Pt is in stable condition. Vitals WNL, Pt alert and oriented x4, skin intact, Pt denies any SI/HI. All discharge paperwork completed dated and signed. Pt educated about discharge instructions, what to do after discharge when to contact MD as well as the s/s reportable to MD, pt verbalized understanding. Pt was provided with all of his discharge paperwork. Pt's last CIWA:1 taken at 1530. Pt was discharged from [facility] on 07/06/17 at 1600. Pt left the building with all of his belongings, prescriptions and medications. MD and psychiatrist have been contacted notified and aware of pt's d/c.
== END 2017-07-06 16:00 | disposition home or self-care (01) | DRG 895 ==
LOC: SRC 20:24
PROVIDERS: ADMIT Internal Medicine; ATTEND Internal Medicine
PROC: HZ2ZZZZ Detoxification Services for Substance Abuse Treatment (ICD-10-PCS; principal; 2017-06-29)
PROC: HZ31ZZZ Individual Counseling for Substance Abuse Treatment, Behavioral (ICD-10-PCS; 2017-07-02)
DX: F10.230 Alcohol dependence with withdrawal, uncomplicated (principal); N17.9 Acute kidney failure, unspecified; F25.9 Schizoaffective disorder, unspecified; F39 Unspecified mood [affective] disorder; F13.230 Sedative, hypnotic or anxiolytic dependence with withdrawal, uncomplicated; Y90.9 Presence of alcohol in blood, level not specified; F41.0 Panic disorder [episodic paroxysmal anxiety]; Z83.3 Family history of diabetes mellitus; G47.00 Insomnia, unspecified; Z91.89 Other specified personal risk factors, not elsewhere classified; F15.21 Other stimulant dependence, in remission; E07.81 Sick-euthyroid syndrome; F11.21 Opioid dependence, in remission; J02.0 Streptococcal pharyngitis; E86.9 Volume depletion, unspecified
CPT/HCPCS: 36415; 80307; 80346; 80361; 83735; 84443; 85025; 86403; 86580; 86592; 86705; 86803; 87070; 87077; 87340; 87806; 93005; G0480; J3411; Q0144; Q0163